=== PATIENT | female | born 1980 | race Caucasian/White ===

== ENCOUNTER 2017-08-13 18:06 | Emergency (ER) | payer OTHER ==
[~2017-08-13] VITALS: Ht 165.1 cm; Wt 49.9 kg
[~2017-08-13 18:06] MED LIST: ANAPROX DS550 MG PO; FLEXERIL5 MG PO
[2017-08-13 18:13] VITALS: BP 121/76
[2017-08-13 18:30] LABS: BILIRUBIN NEGATIVE (NEGATIVE); BLOOD NEGATIVE (NEGATIVE); CLARITY CLEAR (CLEAR); COLOR YELLOW (YELLOW); GLUCOSE NEGATIVE (NEGATIVE); KETONE NEGATIVE (NEGATIVE); LEUKO ESTERASE 1+ (NEGATIVE); NITRITE POSITIVE (NEGATIVE); PH 6.5 (5.0-9.0); SPECIFIC GRAVITY <= 1.005 (1.005-1.030); UROBILINOGEN 0.2 E.U./dl (0.2-1.0)
[2017-08-13 18:37] LABS: BACTERIA 4+; EPITHELIAL CELLS 20-25; MUCOUS TRACE; RBC 0-2 rbc/hpf (0-2)
[2017-08-13] MEDS ORDERED: MACROBID100 M1 PO (18:54)
[2017-08-13] MEDS ORDERED: REGLAN10 M1 PO (19:12)
== END 2017-08-13 19:06 | disposition home or self-care (01) ==
LOC: ED 18:06
PROVIDERS: Nurse Practitioner Family
DX: O23.41 Unspecified infection of urinary tract in pregnancy, first trimester (principal); Z3A.10 10 weeks gestation of pregnancy

== ENCOUNTER 2017-09-30 17:18 | Emergency (ER) | payer OTHER ==
[~2017-09-30] VITALS: Ht 165.1 cm; Wt 51.3 kg
[~2017-09-30 17:18] MED LIST changes: +MACROBID100 M1 PO; +REGLAN10 M1 PO
[2017-09-30 17:40] VITALS: BP 107/64
[2017-09-30] MEDS ORDERED: CYCLOBENZAPRINE10 MG PO (17:52)
[2017-09-30] MEDS ORDERED: TYLENOL EXTRA500 MG PO (17:52)
== END 2017-09-30 17:58 | disposition home or self-care (01) ==
LOC: ED 17:18
DX: O26.892 Other specified pregnancy related conditions, second trimester (principal); M54.2 Cervicalgia; Z3A.15 15 weeks gestation of pregnancy

== ENCOUNTER 2017-10-16 11:40 | Emergency (ER) | payer OTHER ==
[~2017-10-16] VITALS: Ht 165.1 cm; Wt 54.9 kg
[~2017-10-16 11:40] MED LIST changes: +CYCLOBENZAPRINE10 MG PO; +TYLENOL EXTRA500 MG PO
[2017-10-16 11:43] VITALS: BP 122/76
[2017-10-16] MEDS ORDERED: PREDNISONE10 MG PO (11:53)
[2017-10-16] MEDS ORDERED: FLONASE ALLERG9.9 ML NAS (11:53)
[2017-10-16] MEDS ORDERED: CLARITIN10 MG PO (11:53)
[2017-10-16] MEDS ORDERED: TYLENOL EXTRA500 MG PO (12:27)
[2017-10-16] MEDS ORDERED: BENADRYL ALLERG25 M5 PO (12:27)
== END 2017-10-16 12:19 | disposition home or self-care (01) ==
LOC: ED 11:40
DX: O26.892 Other specified pregnancy related conditions, second trimester (principal); R51 Headache; Z3A.17 17 weeks gestation of pregnancy

== ENCOUNTER 2017-10-21 08:59 | Emergency (ER) | payer OTHER ==
[~2017-10-21] VITALS: Ht 165.1 cm; Wt 54.9 kg
[~2017-10-21 08:59] MED LIST changes: +BENADRYL ALLERG25 M5 PO; +CLARITIN10 MG PO; +FLONASE ALLERG9.9 ML NAS; +PREDNISONE10 MG PO
[2017-10-21 11:05] VITALS: BP 104/62
== END 2017-10-21 11:39 | disposition home or self-care (01) ==
LOC: ED 08:59
DX: O26.892 Other specified pregnancy related conditions, second trimester (principal); G43.909 Migraine, unspecified, not intractable, without status migrainosus; O99.332 Smoking (tobacco) complicating pregnancy, second trimester; F17.200 Nicotine dependence, unspecified, uncomplicated; Z3A.18 18 weeks gestation of pregnancy; Z79.899 Other long term (current) drug therapy

== ENCOUNTER 2017-11-06 13:21 | Emergency (ER) | payer OTHER ==
[~2017-11-06] VITALS: Ht 165.1 cm; Wt 54.9 kg
[2017-11-06 13:50] LABS: BASO # 0.1 10*3/uL (0.0-0.1); BASO % 0.3 % (0.0-1.0); EOS # 0.1 10*3/uL (0.0-0.4); EOS % 0.3 % (1.0-4.0); HEMATOCRIT 37.5 % (37.0-47.0); HEMOGLOBIN 12.9 g/dl (12.0-16.0); LYMPH # 2.2 10*3/uL (1.3-4.4); LYMPH % 14.8 % (27.0-41.0); MEAN CELL VOLUME 99.7 fl (81.0-99.0); MEAN CORPUSCULAR HGB 34.3 pg (27.0-31.0); MEAN CORPUSCULAR HGB CONC 34.4 g/dl (33.0-37.0); MEAN PLATELET VOLUME 10.4 fl (9.6-12.3); MONO # 0.5 10*3/uL (0.1-1.0); MONO % 3.6 % (3.0-9.0); NEUT % 80.4 % (47.0-73.0); PLATELET COUNT AUTOMATED 302 10*3/uL (130-400); RED BLOOD COUNT 3.76 10*6/uL (4.10-5.10); RED CELL DISTRI WIDTH 12.8 % (0-14.5); WHITE BLOOD COUNT 14.9 10*3/uL (4.8-10.8)
[2017-11-06 14:25] LABS: ALBUMIN 3.1 gm/dl (3.1-4.5); ALKALINE PHOSPHATASE 82 U/L (45-117); BUN 6 mg/dl (7-24); CHLORIDE 104 mmol/L (98-107); CREATININE 0.51 mg/dL (0.55-1.02); POTASSIUM 3.4 mmol/L (3.5-5.1); SGOT/AST 15 IU/L (3-35); SGPT/ALT 12 U/L (12-78); SODIUM 136 mmol/L (136-145); TOTAL PROTEIN 7.5 gm/dL (6.4-8.2)
[2017-11-06 14:46] LABS: BILIRUBIN NEGATIVE (NEGATIVE); BLOOD 3+ (NEGATIVE); CLARITY TURBID (CLEAR); COLOR YELLOW (YELLOW); GLUCOSE NEGATIVE (NEGATIVE); KETONE 1+ (NEGATIVE); LEUKO ESTERASE 1+ (NEGATIVE); NITRITE POSITIVE (NEGATIVE); SPECIFIC GRAVITY >= 1.030 (1.005-1.030); UROBILINOGEN 0.2 E.U./dl (0.2-1.0)
[2017-11-06 14:51] VITALS: BP 102/64
[2017-11-06 14:54] LABS: WBC TNTC wbc/hpf (0-5)
[2017-11-06] MEDS ORDERED: MACROBID100 M1 PO (15:08)
== END 2017-11-06 15:11 | disposition home or self-care (01) ==
LOC: ED 13:21
PROVIDERS: Emergency Medicine
DX: O23.42 Unspecified infection of urinary tract in pregnancy, second trimester (principal); O26.892 Other specified pregnancy related conditions, second trimester; G43.909 Migraine, unspecified, not intractable, without status migrainosus; Z79.899 Other long term (current) drug therapy; Z3A.20 20 weeks gestation of pregnancy

== ENCOUNTER 2019-02-22 11:19 | Emergency (ER) | payer SELFPAY ==
[~2019-02-22] VITALS: Ht 294.6 cm; Wt 49.9 kg
[2019-02-22 11:19] VITALS: BP 117/79
[2019-02-22 12:04] LABS: BASO # 0.1 10*3/uL (0.0-0.1); EOS # 0.2 10*3/uL (0.0-0.4); EOS % 3.1 % (1.0-4.0); HEMATOCRIT 44.5 % (37.0-47.0); HEMOGLOBIN 15.6 g/dl (12.0-16.0); LYMPH # 2.6 10*3/uL (1.3-4.4); MEAN CELL VOLUME 96.7 fl (81.0-99.0); MEAN CORPUSCULAR HGB 33.9 pg (27.0-31.0); MEAN CORPUSCULAR HGB CONC 35.1 g/dl (33.0-37.0); MEAN PLATELET VOLUME 11.8 fl (9.6-12.3); MONO # 0.5 10*3/uL (0.1-1.0); MONO % 6.5 % (3.0-9.0); NEUT # 3.7 10*3/uL (2.3-7.9); NEUT % 52.3 % (47.0-73.0); PLATELET COUNT AUTOMATED 260 10*3/uL (130-400); WHITE BLOOD COUNT 7.1 10*3/uL (4.8-10.8)
[2019-02-22 12:18] LABS: ALBUMIN 4.3 gm/dl (3.1-4.5); ALKALINE PHOSPHATASE 90 U/L (45-117); BUN 6 mg/dl (7-24); CHLORIDE 106 mmol/L (98-107); CREATININE 0.84 mg/dL (0.55-1.02); ETHYL ALCOHOL < 3.0 mg/dl (<3); POTASSIUM 3.4 mmol/L (3.5-5.1); SGOT/AST 10 IU/L (3-35); SGPT/ALT 14 U/L (12-78); SODIUM 138 mmol/L (136-145); TOTAL PROTEIN 7.8 gm/dL (6.4-8.2)
[2019-02-22 12:23] LABS: BILIRUBIN NEGATIVE (NEGATIVE); BLOOD 3+ (NEGATIVE); CLARITY CLOUDY (CLEAR); COLOR RED (YELLOW); GLUCOSE NEGATIVE (NEGATIVE); KETONE TRACE (NEGATIVE); NITRITE NEGATIVE (NEGATIVE); SPECIFIC GRAVITY >= 1.030 (1.005-1.030)
[2019-02-22 12:30] LABS: LEUKO ESTERASE NEGATIVE (NEGATIVE)
[2019-02-22 12:31] LABS: RBC TNTC rbc/hpf (0-2)
[2019-02-22 12:34] LABS: URINE AMPHETAMINES < 1000 (1000ng/ml); URINE BARBITURATES < 200 (200ng/ml); URINE BENZODIAZEPINES < 200 (200ng/ml); URINE CANNABINOIDS (THC) > 50 (50ng/ml); URINE COCAINE > 300 (300ng/ml); URINE METHADONE < 300 (300ng/ml); URINE OPIATES < 300 (300ng/ml)
[2019-02-22 12:38] LABS: URINE PHENCYCLIDINE < 25 (25ng/ml)
== END 2019-02-22 13:32 | disposition home or self-care (01) ==
LOC: ED 11:19
PROVIDERS: Nurse Practitioner Family
DX: N93.8 Other specified abnormal uterine and vaginal bleeding (principal); F12.10 Cannabis abuse, uncomplicated; F14.10 Cocaine abuse, uncomplicated; F17.200 Nicotine dependence, unspecified, uncomplicated

== ENCOUNTER 2020-12-31 04:48 | Emergency (ER) | payer OTHER ==
[~2020-12-31] VITALS: Ht 165.1 cm; Wt 47.6 kg
[2020-12-31 04:55] VITALS: BP 131/88
== END 2020-12-31 06:49 | disposition home or self-care (01) ==
LOC: ED 04:48
DX: S01.511A Laceration without foreign body of lip, initial encounter (principal); S80.02XA Contusion of left knee, initial encounter; Z79.899 Other long term (current) drug therapy; W19.XXXA Unspecified fall, initial encounter; Y93.89 Activity, other specified; Y92.89 Other specified places as the place of occurrence of the external cause; Y99.8 Other external cause status